=== PATIENT | female | born 1975 | race Caucasian/White ===

== ENCOUNTER 2019-11-26 22:04 | Inpatient (IN) ==
[2019-11-26] MEDS ORDERED: ALBUTEROL/IPRATROPIUM 3 ML NEB RESP TX STA (22:57)
[2019-11-26] MEDS ORDERED: ONDANSETRON 4 MG/2 ML VIAL IV STA (22:57)
[2019-11-26] MEDS ORDERED: PIPERACILLIN/TAZOBACTAM 3,375 MG in SODIUM CHLORIDE 0.9% 100 ML IV STA (22:57)
[2019-11-26] MEDS ORDERED: methylPREDNISolone SOD SUC 125 MG/2 ML VIAL IV STA (22:57)
[2019-11-26 23:22] LABS: ABG HCO3 29.5 MMOL/L (20-26); ABG Oxygen Saturation 86.9 % (95-100); ABG PCO2 40.7 MM HG (35-48); ABG PH 7.476 (7.35-7.45); ABG PO2 54.6 MM HG (80-95); ABG TCO2 25.9 MMOL/L (23-27); Allen Test Positive
[2019-11-26 23:37] LABS: Alanine Aminotransferase 31 U/L (13-56); Albumin 2.9 G/DL (3.4-5.0); Alkaline Phosphatase 97 U/L (45-117); Aspartate Amino Transferase 53 U/L (0-37); Bilirubin,Total < 0.39 MG/DL (0.2-1.0); Blood Urea Nitrogen 21 MG/DL (7-18); Calcium 9.8 MG/DL (8.5-10.1); Estimated Glom Filtration Rate 73 ML/MIN; Ferritin 273.1 ng/ml (8-252); Glucose 89 MG/DL (74-106); Osmolality,Calculated 271.1 MOS/KG (273-304); Total Protein 9.3 G/DL (6.4-8.3)
[2019-11-26 23:38] LABS: Basophils # 0.1 10*3/uL (0.0-0.2); Basophils % 0.5 % (0.0-0.8); Eosinophils # 0.1 10*3/uL (0.0-0.87); Eosinophils % 0.7 % (0.00-10.9); Hematocrit 32.8 VOL% (35.7-47.0); Hemoglobin 10.6 GM/DL (12.0-16.0); Immature Granulocytes % 2.3 %; Immature Granulocytes Absolute 0.23 #; Lymphocytes # 2.9 10*3/uL (1.4-4.0); Lymphocytes % 28.6 % (21.3-54.2); Mean Corpuscular HGB Conc 32.3 GM/DL (32-36); Mean Corpuscular Volume 99.1 FL (87-102); Mean Platelet Volume 9.2 FL (9.6-12.0); Monocytes % 11.1 % (1.7-12.7); Neutrophils % 56.8 % (38.7-73.9); Platelet Count 349 T/CUMM (130-400); Red Blood Count 3.31 MC/CUMM (3.8-5.5); Red Cell Distribution Width 14.5 % (9.3-17.3); White Blood Count 10.2 T/CUMM (4-12)
[2019-11-26 23:53] LABS: INR 1.1; PT Patient Result 11.5 SECS (9.8-11.9); Partial Thromboplastin Time 38.4 SECS (23.9-33.8)
[2019-11-26] MEDS ORDERED: POTASSIUM CHLORIDE 20 MEQ TABLET PO STA (23:55)
[2019-11-27 00:09] LABS: INR 1.1; PT Patient Result 11.6 SECS (9.8-11.9)
[2019-11-27] MEDS ORDERED: MORPHINE 4 MG/1 ML VIAL IV PRN (00:14)
[2019-11-27] MEDS ORDERED: ACETAMINOPHEN 325 MG TABLET PO PRN (00:14)
[2019-11-27] MEDS ORDERED: ONDANSETRON 4 MG/2 ML VIAL IV PRN (00:14)
[2019-11-27] MEDS ORDERED: diphenhydrAMINE CAP 25 MG CAPSULE PO PRN (00:14)
[2019-11-27] MEDS ORDERED: guaiFENesin/DM ER 600-30 MG TABLET PO PRN (00:14)
[2019-11-27] MEDS ORDERED: hydrALAZINE 20 MG/1 ML VIAL IV PRN (00:14)
[2019-11-27] MEDS ORDERED: GLUCAGON 1 MG VIAL IM PRN ×2 (00:14)
[2019-11-27] MEDS ORDERED: ZALEPLON 5 MG CAPSULE PO PRN (00:14)
[2019-11-27] MEDS ORDERED: DEXTROSE 50% 25 GM/50 ML VIAL IV PRN ×2 (00:14)
[2019-11-27] MEDS ORDERED: DOCUSATE SODIUM 100 MG CAPSULE PO PRN (00:14)
[2019-11-27] MEDS ORDERED: AZITHROMYCIN INJ 500 MG in SODIUM CHLORIDE 0.9% 250 ML IV SCH (00:30)
[2019-11-27 01:35] LABS: Apearance,Urine Slightly Hazy (Clear); Bacteria,Urine Occasional /HPF (Few); Bilirubin,Urine Negative (Negative); Blood, Urine Negative (Negative); Glucose,Urine (UA) Negative (Negative); Ketones,Urine 5 mg/dL (Negative); Mucus,Urine Occasional /LPF (Occasional); Nitrite,Urine Negative (Negative); Protein,Urine 30 MG/DL; RBC,Urine 23 /HPF (0-4); Renal Epithelial Cells,Urine Occasional /HPF (<1); Squamous Epithelial Cell,Urine Few /HPF (0-10); Urine Color Yellow (Yellow); Urine Specific Gravity 1.025 (1.001-1.035); Urine Urobilinogen < 2.0 EU/DL (0.2-1.0); WBC,Urine 1 /HPF (0-6)
[2019-11-27] MEDS ORDERED: VANCOMYCIN INJ 1,500 MG in SODIUM CHLORIDE 0.9% 500 ML IV SCH (02:30)
[2019-11-27] MEDS: SODIUM CHLORIDE 0.9% 1,000 ML IV SCH (03:07)
[2019-11-27 04:10] LABS: Barbiturates Screen,Urine Negative (Negative); Benzodiazepines Screen,Urine Negative (Negative); Cannabinoid Screen,Urine Negative (Negative); Opiate Screen,Urine Positive (Negative); Phencyclidine Screen,Urine Negative (Negative)
[2019-11-27] MEDS ORDERED: POTASSIUM CHLORIDE 20 MEQ TABLET PO ONE (06:07)
[2019-11-27 06:29] LABS: Basophils % 0.5 % (0.0-0.8); Eosinophils % 0.1 % (0.00-10.9); Hematocrit 29.4 VOL% (35.7-47.0); Hemoglobin 9.3 GM/DL (12.0-16.0); Immature Granulocytes % 4.2 %; Immature Granulocytes Absolute 0.33 #; Lymphocytes # 1.6 10*3/uL (1.4-4.0); Lymphocytes % 19.8 % (21.3-54.2); Mean Corpuscular HGB Conc 31.6 GM/DL (32-36); Mean Corpuscular Volume 102.1 FL (87-102); Mean Platelet Volume 9.3 FL (9.6-12.0); Monocytes % 3.2 % (1.7-12.7); NRBC # 0.02 10*3/uL; Neutrophils % 72.2 % (38.7-73.9); Platelet Count 322 T/CUMM (130-400); Red Blood Count 2.88 MC/CUMM (3.8-5.5); Red Cell Distribution Width 14.6 % (9.3-17.3); White Blood Count 7.9 T/CUMM (4-12)
[2019-11-27 07:01] LABS: Albumin 2.4 G/DL (3.4-5.0); Bilirubin,Total 0.6 MG/DL (0.2-1.0); Calcium 9.2 MG/DL (8.5-10.1); Osmolality,Calculated 280.7 MOS/KG (273-304); Thyroid Stimulating Hormone 1.63 uIU/ml (0.358-3.74); Total Protein 7.9 G/DL (6.4-8.3)
[2019-11-27] MEDS: AZITHROMYCIN 250 MG TABLET PO SCH (09:43)
[2019-11-27] MEDS: PANTOPRAZOLE 40 MG TABLET PO SCH (09:43)
[2019-11-27] MEDS: INSULIN LISPRO 100 UNIT/ML SUBCUT SCH ×4 (09:43→20:17)
[2019-11-27] MEDS: ENOXAPARIN 40 MG/0.4 ML SYRINGE SUBCUT SCH (09:44)
[2019-11-27] MEDS: PIPERACILLIN/TAZOBACTAM 4,500 MG in SODIUM CHLORIDE 0.9% 100 ML IV SCH ×2 (09:45→15:20)
[2019-11-27] MEDS: ALBUTEROL INHALER 18 GM INH SCH ×4 (09:46→18:02)
[2019-11-27] MEDS: NICOTINE 21 MG/24 HR PATCH TRANSDERM SCH (09:46)
[2019-11-27] MEDS: methylPREDNISolone SOD SUC 40 MG/1 ML VIAL IV SCH ×2 (11:43→18:02)
[2019-11-28] MEDS: ALBUTEROL INHALER 18 GM INH SCH ×6 (00:53→19:15)
[2019-11-28] MEDS: PIPERACILLIN/TAZOBACTAM 4,500 MG in SODIUM CHLORIDE 0.9% 100 ML IV SCH ×3 (00:54→17:09)
[2019-11-28] MEDS: methylPREDNISolone SOD SUC 40 MG/1 ML VIAL IV SCH ×3 (03:43→19:15)
[2019-11-28 06:56] LABS: Basophils % 0.3 % (0.0-0.8); Hematocrit 30.9 VOL% (35.7-47.0); Hemoglobin 9.7 GM/DL (12.0-16.0); Immature Granulocytes % 4.5 %; Immature Granulocytes Absolute 0.59 #; Lymphocytes # 2.4 10*3/uL (1.4-4.0); Lymphocytes % 17.8 % (21.3-54.2); Mean Corpuscular HGB Conc 31.4 GM/DL (32-36); Mean Corpuscular Volume 101.6 FL (87-102); Mean Platelet Volume 9.3 FL (9.6-12.0); NRBC # 0.05 10*3/uL; Neutrophils % 70.4 % (38.7-73.9); Platelet Count 361 T/CUMM (130-400); Red Blood Count 3.04 MC/CUMM (3.8-5.5); Red Cell Distribution Width 14.7 % (9.3-17.3); White Blood Count 13.2 T/CUMM (4-12)
[2019-11-28 07:22] LABS: Lymphocytes 17 % (20-55); Nucleated Red Blood Cells 1 (0-5); Segmented Neutrophils 77 % (50-85); Total Cells Counted 100
[2019-11-28 07:23] LABS: Hypochromasia 1+; Microcytosis Slight; Platelet Estimate Adequate
[2019-11-28 07:26] LABS: Calcium 9.2 MG/DL (8.5-10.1); Osmolality,Calculated 280.7 MOS/KG (273-304)
[2019-11-28] MEDS: PANTOPRAZOLE 40 MG TABLET PO SCH (10:13)
[2019-11-28] MEDS: ENOXAPARIN 40 MG/0.4 ML SYRINGE SUBCUT SCH (10:13)
[2019-11-28] MEDS: INSULIN LISPRO 100 UNIT/ML SUBCUT SCH ×4 (10:13→20:00)
[2019-11-28] MEDS: AZITHROMYCIN 250 MG TABLET PO SCH (10:13)
[2019-11-28] MEDS: NICOTINE 21 MG/24 HR PATCH TRANSDERM SCH (10:14)
[2019-11-28 12:04] LABS: Basophils % 0.3 % (0.0-0.8); Hematocrit 30.5 VOL% (35.7-47.0); Hemoglobin 9.4 GM/DL (12.0-16.0); Immature Granulocytes % 4.4 %; Immature Granulocytes Absolute 0.65 #; Lymphocytes # 2.7 10*3/uL (1.4-4.0); Mean Corpuscular HGB Conc 30.8 GM/DL (32-36); Mean Corpuscular Volume 104.5 FL (87-102); Monocytes % 6.8 % (1.7-12.7); NRBC # 0.08 10*3/uL; Neutrophils % 70.5 % (38.7-73.9); Platelet Count 387 T/CUMM (130-400); Red Blood Count 2.92 MC/CUMM (3.8-5.5); Red Cell Distribution Width 14.6 % (9.3-17.3); White Blood Count 14.8 T/CUMM (4-12)
[2019-11-28 12:13] LABS: ABG Base Excess 1.3 MMOL/L (-2.5-2.5); ABG HCO3 25.6 MMOL/L (20-26); ABG Oxygen Saturation 95.7 % (95-100); ABG PCO2 36.6 MM HG (35-48); ABG PH 7.446 (7.35-7.45); ABG PO2 81.2 MM HG (80-95); ABG TCO2 22.9 MMOL/L (23-27)
[2019-11-28 12:29] LABS: Band Neutrophils 3 % (0-10); Lymphocytes 14 % (20-55); Metamyelocytes 3 %; Nucleated Red Blood Cells 1 (0-5); Segmented Neutrophils 78 % (50-85); Total Cells Counted 100
[2019-11-28 12:34] LABS: Polychromasia Few
[2019-11-28 12:35] LABS: Anisocytosis Slight; Macrocytosis Slight; Platelet Estimate Normal; Reactive Lymphocytes Slight
[2019-11-28 12:56] LABS: Folate 7.7 NG/ML (5.4-24.0); Vitamin B12 483 PG/ML (211-911)
[2019-11-28 13:56] LABS: Sedimentation Rate-Westergren 121 MM/HR (0-20)
[2019-11-29] MEDS: PIPERACILLIN/TAZOBACTAM 4,500 MG in SODIUM CHLORIDE 0.9% 100 ML IV SCH ×2 (00:47→08:30)
[2019-11-29] MEDS: ALBUTEROL INHALER 18 GM INH SCH ×4 (00:48→12:55)
[2019-11-29] MEDS: SODIUM CHLORIDE 0.9% 1,000 ML IV SCH ×2 (00:49→08:33)
[2019-11-29] MEDS: methylPREDNISolone SOD SUC 40 MG/1 ML VIAL IV SCH (03:33)
[2019-11-29 05:48] LABS: Basophils # 0.1 10*3/uL (0.0-0.2); Basophils % 0.6 % (0.0-0.8); Hematocrit 31.8 VOL% (35.7-47.0); Hemoglobin 9.8 GM/DL (12.0-16.0); Immature Granulocytes % 6.1 %; Immature Granulocytes Absolute 0.97 #; Lymphocytes # 4.3 10*3/uL (1.4-4.0); Lymphocytes % 26.8 % (21.3-54.2); Mean Corpuscular HGB Conc 30.8 GM/DL (32-36); Mean Platelet Volume 9.1 FL (9.6-12.0); Monocytes % 7.7 % (1.7-12.7); NRBC # 0.17 10*3/uL; Neutrophils % 58.8 % (38.7-73.9); Platelet Count 423 T/CUMM (130-400); Red Blood Count 3.03 MC/CUMM (3.8-5.5); Red Cell Distribution Width 14.8 % (9.3-17.3); White Blood Count 15.9 T/CUMM (4-12)
[2019-11-29 06:15] LABS: Albumin 2.6 G/DL (3.4-5.0); Bilirubin,Total 0.5 MG/DL (0.2-1.0); Calcium 9.2 MG/DL (8.5-10.1); Osmolality,Calculated 284.3 MOS/KG (273-304); Total Protein 7.5 G/DL (6.4-8.3)
[2019-11-29 06:58] LABS: Band Neutrophils 1 % (0-10); Hypochromasia 1+; Lymphocytes 21 % (20-55); Macrocytosis Slight; Metamyelocytes 1 %; Myelocytes 2 %; Nucleated Red Blood Cells 1 (0-5); Polychromasia Slight; Segmented Neutrophils 69 % (50-85); Total Cells Counted 100
[2019-11-29 06:59] LABS: Platelet Estimate Increased
[2019-11-29] MEDS: NICOTINE 21 MG/24 HR PATCH TRANSDERM SCH (08:32)
[2019-11-29] MEDS: AZITHROMYCIN 250 MG TABLET PO SCH (08:32)
[2019-11-29] MEDS: INSULIN LISPRO 100 UNIT/ML SUBCUT SCH ×2 (08:32→12:55)
[2019-11-29] MEDS: ENOXAPARIN 40 MG/0.4 ML SYRINGE SUBCUT SCH (08:33)
[2019-11-29] MEDS: PANTOPRAZOLE 40 MG TABLET PO SCH (08:33)
[2019-11-29 08:52] LABS: % Iron Saturation 21.7 % (18-50)
[2019-11-29] MEDS ORDERED: methylPREDNISolone SOD SUC 40 MG/1 ML VIAL IV SCH (09:00)
[2019-11-29] MEDS ORDERED: cefTRIAXone 1,000 MG in SYRINGE 1 EACH IV SCH (09:00)
[2019-11-29 09:45] LABS: Hepatitis B Core IgM Quant 0.17 Index; Hepatitis B Surface Ag Quant < 0.10 Index; Hepatitis B Surface Ag Result Negative (Negative); Hepatitis C Virus Ab Quant 0.08 Index; Hepatitis C Virus Ab Result Negative (Negative)
[2019-11-29 12:00] VITALS: BP 131/95
[2019-12-01 10:33] LABS: Hemoglobin A1 (Alkaline) 97.5 % (96.5-98.5); Hemoglobin A2 (Alkaline) 2.5 % (1.5-3.5)
== END 2019-11-29 15:45 | disposition home or self-care (01) | DRG 190 ==
LOC: N.ED 22:04 → N.EDINP 11-27 00:14 → SUATTDRO 11-27 00:14 → N.3E 11-27 01:35
PROVIDERS: ADMIT Internal Medicine; ATTEND Internal Medicine